=== PATIENT | female | born 1995 | race Caucasian/White ===

== ENCOUNTER 2025-06-13 19:46 | Emergency (ER) | payer OTHER, SELFPAY ==
[2025-06-13 19:49] VITALS: BP 121/73
--- NOTE | 2025-06-13 21:37 | ED.GENMED ---
History of Present Illness
General
Chief Complaint: Eye Problems
Source: patient
Exam Limitations: none
Time Seen by Provider: 06/13/25 21:31
Nursing documentation reviewed up to this point in time: agreed with
History of Present Illness
History of Present Illness:
Left-sided eye pain scratched by her son's fingernail just prior to arrival does not wear contacts pain is moderate
Past History
Past History
ED Past Medical History: None
ED Past Surgical History: None
Social History
Alcohol: None
Drug: None
Personal:
Living: with family
Employment: Employed
Review of Systems
Review of Systems
All Other Systems: Not applicable
EENT: Reports other (Eye pain tearing)
Phy Exam
Physical Exam
Physical Exam:
Physical Exam
General: Looks uncomfortable nontoxic
Neck: Pupils round and reactive fluorescein uptake on the left between 3 and 5:00
Lungs: no acute respiratory distress.
Neuro: alert and oriented. no focal neurological deficits
Skin: no rash
Psychiatric: well kept. interactive and cooperative
Extremities: No cyanosis
Course
Orders/Labs/Results
Orders:
Orders
06/13/25 21:48
Erythromycin (Ilotycin) [Erythromycin 0.5% Ophthalmic Ointment] See Dose Instructions OPHTH NOW STA
06/13/25 22:52
Purified Water Eye Wash [Dacriose Eye Wash Solution] 120 ml .ROUTE .STK-MED ONE
Tetracaine HCl [Tetracaine 0.5% Ophthalmic Solution] 1 drop .ROUTE .STK-MED ONE
Vital Signs
Initial and Last Documented VS:
Initial Vital Signs
Temp Pulse Resp BP Pulse Ox
98.4 F 94 20 121/73 100
06/13/25 19:49 06/13/25 19:49 06/13/25 19:49 06/13/25 19:49 06/13/25 19:49
Last Documented Vital Signs
Temp Pulse Resp BP Pulse Ox
98.4 F 74 18 109/60 98
06/13/25 19:49 06/13/25 22:09 06/13/25 22:09 06/13/25 22:09 06/13/25 22:09
Procedures
Eye Procedures
Anesthesia: other (Tetracaine)
After removal was there a corneal abrasion?: corneal abrasion present (Moderate size between 3 and 5:00)
*Pulse Oximetry
SaO2: 100
Oxygen Mode of Delivery: Room air
Patient hypoxic: no
*Critical Care Note
Total Time (30-74mins, 75-104mins- exclusive of procedures): Not Applicable
Update Note
Update Note:
Update patient with fluorescein uptake between 3-5 o'clock improved with tetracaine reviewed treatment with her she does not really want any narcotics
ED Attending Note
-
Portions of this chart may have been created with voice recognition software.� Occasional wrong word or��sound alike� substitutions may have occurred due to the inherent limitations of voice recognition software.
Discharge Plan
Departure
Patient Disposition: Home (Routine Discharge)
Date of Disposition: 06/13/25
Time of Disposition: 21:50
Patient with high blood pressure during this ER visit?: No
Condition: Good
Discharge Problem:
Abrasion, corneal
Instructions: Corneal Abrasion (DC)
Prescriptions:
New
oxycodone-acetaminophen [Percocet] 5-325 mg tablet
1 tab PO Q6HPRN PRN (Reason: pain) Qty: 10 0RF
Referrals:
Shannan French MD [Active, Ophthalmology] - Follow up in 2-3 days
NONE,* [Family Provider, Internal Medicine]
Activity Restrictions/Additional Instructions:
Use antibiotic ointment small amount twice a day for the next few days
Tylenol or Percocet as needed for pain
Interventions
Interventions:
*General Assessment Last Done: 06/13/25 19:55
*Neglect/Abuse Screening Last Done: 06/13/25 19:55
*ED COVID-19 Vaccine History Last Done: 06/13/25 19:55
*ED Influenza Vaccine History Last Done: 06/13/25 19:55
[facility] Fall Risk Assessment Tool Last Done: 06/13/25 20:17
*Risk Screen - Suicide (C-SSRS) Last Done: 06/13/25 19:55
*Nursing Disposition Last Done: 06/13/25 22:34
Discharge Date and Time
Discharge Date/Time: 06/13/25 22:34
Print Language: MICRONESIAN
[2025-06-13] MEDS: ERYTHROMYCIN 0.5% OPHTHALMIC OINTMENT 1 APPLIC OPHTH (21:59)
[2025-06-13 22:09] VITALS: BP 109/60
== END 2025-06-13 22:34 | disposition home or self-care (01) ==
LOC: EMR 19:46
PROVIDERS: EMERGENCY PHYSICIAN Emergency Medicine
DX: S05.02XA Injury of conjunctiva and corneal abrasion without foreign body, left eye, initial encounter (principal); W50.4XXA Accidental scratch by another person, initial encounter
CPT/HCPCS: 99283